=== PATIENT | female | born 1990 | race Caucasian/White ===

== ENCOUNTER 2017-10-03 16:41 | Emergency (ER) | payer OTHER ==
[~2017-10-03] VITALS: Ht 160 cm; Wt 99.8 kg
[~2017-10-03 16:41] MED LIST: (None)100 MG/ML IM; BISACODYL PO; HYDACE5 PO; HYDR1TAB94 PO; IBUP800 PO; METO10 PO; MULVITA; MULVITMINE PO; NAPR500 PO; SERT50 PO
== END 2017-10-03 19:24 | disposition home or self-care (01) ==
LOC: ER 16:41
DX: F32.9 Major depressive disorder, single episode, unspecified (principal); Z88.5 Allergy status to narcotic agent; Z79.899 Other long term (current) drug therapy; F17.210 Nicotine dependence, cigarettes, uncomplicated
CPT/HCPCS: 99284; Q3014

== ENCOUNTER 2018-05-19 09:41 | Emergency (ER) | payer OTHER ==
[~2018-05-19] VITALS: Ht 160 cm; Wt 90.7 kg
== END 2018-05-19 11:02 | disposition home or self-care (01) ==
LOC: ER 09:41
DX: R21 Rash and other nonspecific skin eruption (principal); Z88.5 Allergy status to narcotic agent; Z79.899 Other long term (current) drug therapy; K21.9 Gastro-esophageal reflux disease without esophagitis; F17.210 Nicotine dependence, cigarettes, uncomplicated
CPT/HCPCS: 99282

== ENCOUNTER 2018-08-22 14:14 | Emergency (ER) | payer MEDICAID ==
[~2018-08-22] VITALS: Ht 160 cm; Wt 86.2 kg
[2018-08-22 15:12] LABS: BASOPHILS ABSOLUTE AUTO 0.03 K/mm3 (0.00-0.23); BASOPHILS PERCENT AUTO 0 % (0-2); EOSINOPHILS ABSOLUTE AUTO 0.06 K/mm3 (0.00-0.68); EOSINOPHILS PERCENT AUTO 1 % (0-6); Hematocrit 46.5 % (33.0-51.0); IMMATURE GRAN ABSOLUTE AUTO 0.03 K/mm3 (0.00-0.10); IMMATURE GRAN PERCENT AUTO 0 % (0-1); LYMPHOCYTES ABSOLUTE AUTO 1.42 K/mm3 (0.84-5.20); LYMPHOCYTES PERCENT AUTO 19 % (21-46); MONOCYTES ABSOLUTE AUTO 0.17 K/mm3 (0.16-1.47); MONOCYTES PERCENT AUTO 2 % (4-13); Mean Corpuscular HGB 28.4 pg (26.0-34.0); Mean Corpuscular HGB Conc 32.3 g/dL (31.5-36.5); Mean Corpuscular Volume 88 fL (80-100); Mean Platelet Volume 12.3 fL (9.1-12.4); NEUTROPHILS PERCENT AUTO 77 % (41-73); Platelet Count 215 K/mm3 (150-400); RDW Coefficient Variation 12.9 % (11.7-14.2); RDW Standard Deviation 41.9 fL (35.1-46.3); Red Blood Cell Count 5.28 M/mm3 (3.80-5.20); White Blood Cell Count 7.51 K/mm3 (4.00-11.30)
[2018-08-22 15:46] LABS: Alanine Aminotransfer (ALT/SGP 24 U/L (12-78); Alk Phos 77 U/L (50-136); Anion Gap 9 mmol/L (6-16); Aspartate Aminotrans (AST/SGOT 19 U/L (12-37); Bilirubin, Total 0.5 mg/dL (0.1-1.0); Blood Urea Nitrogen 9 mg/dL (8-24); Bun/Creatinine Ratio 14.4 (12.0-20.0); CO2, Blood 22 mmol/L (21-32); Calcium, Blood 9.3 mg/dL (8.5-10.1); Chloride, Blood 109 mmol/L (98-108); Creatinine, Blood 0.63 mg/dL (0.40-1.00); Glomerular Filtration Rate >60 (60-); Glucose, Blood 98 mg/dL (70-99); Potassium, Blood 3.9 mmol/L (3.5-5.5); Sodium, Blood 140 mmol/L (136-145)
[2018-08-22 18:18] LABS: Source, Urine Clean Catch
[2018-08-22] MEDS ORDERED: QUET25 PO (19:10)
[2018-08-22] MEDS ORDERED: Atarax10 MG (19:10)
[2018-08-22 19:33] LABS: Appearance, Urine Hazy (Clear); Bilirubin, Urine Neg (Neg); Blood, Urine 1+ (Neg); Color, Urine Yellow (P-Yellow); Glucose Qualitative, Urine Neg (Neg); Ketones, Urine 4+ (Neg); Leukocyte Esterase, Urine Neg (Neg); Nitrite, Urine Neg (Neg); Protein, Urine 1+ (Neg); Urobilinogen, Urine NORM (Normal)
[2018-08-22 19:53] LABS: Bacteria Many /hpf; Red Blood Cells, Urine 0-2 /hpf (0-2); Squamous Epithelial Cells Many /hpf (Few)
[2018-08-22] MEDS ORDERED: ONDA4ODT MM (20:18)
== END 2018-08-22 21:02 | disposition home or self-care (01) ==
LOC: ER 14:14
PROVIDERS: Physician Assistant
DX: J98.01 Acute bronchospasm (principal); E86.0 Dehydration; F31.9 Bipolar disorder, unspecified; F17.200 Nicotine dependence, unspecified, uncomplicated; Z88.5 Allergy status to narcotic agent; Z79.899 Other long term (current) drug therapy
CPT/HCPCS: 36415; 71046; 80053; 81001; 81025; 85025; 87086; 93005; 93010; 94640; 96361; 96374; 96375; 99284-25; A9270-GY; J2405; J2550; J7030

== ENCOUNTER → 2019-03-06 | Outpatient (CLI) | payer OTHER ==
[~2019-03-06] MED LIST changes: +Atarax10 MG; +ONDA4ODT MM; +QUET25 PO
[2019-03-08 01:06] LABS: CHLAMYDIA TRACHOMATIS, NAA Negative (Negative); NEISSERIA GONORRHOEAE, NAA Negative (Negative)
== END ==
LOC: LAB SHORT 11:06 → LAB 11:06 → LAB EV 11:06
PROVIDERS: Registered Nurse Community Health
DX: Z34.80 Encounter for supervision of other normal pregnancy, unspecified trimester (principal)
CPT/HCPCS: 87491; 87591

== ENCOUNTER → 2023-06-09 | Outpatient (CLI) | payer OTHER ==
[2023-06-09 11:59] LABS: BASOPHILS ABSOLUTE AUTO 0.05 K/mm3 (0.00-0.23); BASOPHILS PERCENT AUTO 1 % (0-2); EOSINOPHILS ABSOLUTE AUTO 0.16 K/mm3 (0.00-0.68); EOSINOPHILS PERCENT AUTO 2 % (0-6); Hematocrit 42.5 % (33.0-51.0); Hemoglobin 14.4 g/dL (11.5-16.0); IMMATURE GRAN ABSOLUTE AUTO 0.02 K/mm3 (0.00-0.10); IMMATURE GRAN PERCENT AUTO 0 % (0-1); LYMPHOCYTES ABSOLUTE AUTO 3.13 K/mm3 (0.84-5.20); LYMPHOCYTES PERCENT AUTO 32 % (21-46); MONOCYTES ABSOLUTE AUTO 0.54 K/mm3 (0.16-1.47); MONOCYTES PERCENT AUTO 5 % (4-13); Mean Corpuscular HGB 30.3 pg (26.0-34.0); Mean Corpuscular HGB Conc 33.9 g/dL (31.5-36.5); Mean Corpuscular Volume 89 fL (80-100); Mean Platelet Volume 12.6 fL (9.1-12.4); NEUTROPHILS ABSOLUTE AUTO 6.04 K/mm3 (1.96-9.15); NEUTROPHILS PERCENT AUTO 61 % (41-73); Platelet Count 225 K/mm3 (150-400); RDW Standard Deviation 42.4 fL (35.1-46.3); Red Blood Cell Count 4.76 M/mm3 (3.80-5.20); White Blood Cell Count 9.94 K/mm3 (4.00-11.30)
[2023-06-09 12:08] LABS: Albumin, Blood 4.1 g/dL (3.4-5.0); Albumin/Globulin Ratio 1.1 (0.8-1.8); Bilirubin, Total 0.6 mg/dL (0.1-1.0); Bun/Creatinine Ratio 9.6 (12.0-20.0); Calcium, Blood 9.6 mg/dL (8.5-10.1); Creatinine, Blood 0.94 mg/dL (0.40-1.00); Globulin, Blood 3.9 g/dL (2.2-4.0); Potassium, Blood 3.8 mmol/L (3.5-5.5)
== END | disposition home or self-care (01) ==
LOC: LAB 11:50 → LAB SHORT 11:50
PROVIDERS: Emergency Medicine
DX: R42 Dizziness and giddiness (principal)
CPT/HCPCS: 80053; 83690; 83880; 84484; 85025; 85379

== ENCOUNTER → 2024-04-29 | Outpatient (CLI) | payer OTHER ==
[2024-05-04 08:06] LABS: 3-OH-COTININE, URN, QUANT <50 ng/mL; ANABASINE, URN, QUANT <5 ng/mL; COTININE, URN, QUANT <15 ng/mL; NICOTINE, URN, QUANT <15 ng/mL
== END ==
LOC: LAB SHORT 13:45 → LAB 13:45
PROVIDERS: Obstetrics & Gynecology
DX: Z87.891 Personal history of nicotine dependence (principal)
CPT/HCPCS: G0480

== ENCOUNTER → 2024-06-18 | Outpatient (CLI) | payer OTHER ==
[~2024-06-18] MED LIST changes: -Atarax10 MG; +BUSP10 PO; +HYDHCL25 PO; +LATUDA80 M1 PO; +LEVSOD75 PO; +LITH300C PO; +LITHIUM CARBON PO
[2024-06-24 18:13] LABS: HPV HIGH RISK BY TMA Not Detected; HPV SOURCE Cervical
== END ==
LOC: LAB 09:19 → LAB SHORT 09:19
PROVIDERS: Obstetrics & Gynecology
DX: Z12.4 Encounter for screening for malignant neoplasm of cervix (principal)
CPT/HCPCS: 87624; G0123

== ENCOUNTER 2024-07-14 11:39 | Day surgery (SDC) | payer OTHER ==
[~2024-07-14] VITALS: Ht 160 cm; Wt 94.9 kg
[2024-07-14] VITALS (16 sets, daily range): BP systolic 98–118; BP diastolic 55–82
[~2024-07-14 11:39] MED LIST changes: +Bupivacaine 0.5% HCl 5 MG/ML 30MLVIAL ONE; +CeFAZolin Sodium 2,000 MG in NS 100 ML IV SCH; +Dexamethasone Sod Phos 10 MG/ML 1ML VIAL ONE; +Lactated Ringer's 1,000 ML IV SCH; +Metoclopramide HCl 5MG / ML 2ML Vial ONE; +Ondansetron HCl 2 MG / ML 2ML Vial ONE; +Rocuronium Bromide 10 MG/ML 5ML Injection IV ONE; +Sugammadex Sodium 200 MG/2ML SDV (100 MG/ML) ONE
[2024-07-14] MEDS ORDERED: Bupivacaine 0.5% W/EPI 1:200000 SDV 30 ML Vial ONE (11:44)
[2024-07-14] MEDS ORDERED: propofoL 200 ML IV ONE (11:50)
[2024-07-14] MEDS ORDERED: HYDROmorphone HCl/Pf 1MG SYR ONE ×2 (11:54→14:43)
[2024-07-14] MEDS ORDERED: Acetaminophen 500 MG Tab PO SCH ×2 (12:00→18:00)
[2024-07-14] MEDS ORDERED: HyDROXyzine HCl 25 MG Tab PO PRN (12:25)
[2024-07-14] MEDS ORDERED: Phenylephrine HCl 100 MCG/ML-NS 10MLSYR (1MG/10ML) ONE (12:46)
--- NOTE | 2024-07-14 12:55 | NUR ---
07/14/24 1255 Natan Ashraf CARLISLE 14FR CATHETER STERILY PLACED BY DR. FLORES, WILL BE REMOVED PRIOR TO LEAVING THE OR. NATAN MARRERO RN 07-14-24 @6031
[2024-07-14] MEDS ORDERED: FentaNYL Citrate 50 MCG/ML 2 ML Injection ONE ×2 (13:04→13:55)
[2024-07-14] MEDS ORDERED: Ketorolac Tromethamine 30mg Vial ONE (13:37)
[2024-07-14] MEDS ORDERED: DiphenhydrAMINE HCL 25 MG Cap PO PRN (14:05)
[2024-07-14] MEDS ORDERED: FLU VACC TS2024-25(6MOS UP)/PF 45 MCG/0.5 ML SYRINGE IM SCH (14:10)
[2024-07-14] MEDS ORDERED: Lactated Ringer's 1,000 ML IV SCH (14:10)
[2024-07-14] MEDS ORDERED: Ondansetron HCl 2 MG / ML 2ML Vial IV PRN (14:10)
[2024-07-14] MEDS ORDERED: HYDROmorphone HCl/Pf 1MG SYR IV PRN (14:10)
[2024-07-14] MEDS ORDERED: Metoclopramide HCl 5MG / ML 2ML Vial IV PRN (14:10)
[2024-07-14] MEDS ORDERED: Ondansetron 4 MG TAB PO PRN (14:10)
[2024-07-14] MEDS ORDERED: Simethicone 80 MG Chew PO PRN (14:15)
[2024-07-14] MEDS ORDERED: Metoclopramide HCl 10 MG Tab PO PRN (14:15)
[2024-07-14] MEDS ORDERED: OxyCODONE HCL 5 MG TAB PO PRN (14:15)
[2024-07-14] MEDS ORDERED: Albuterol 2.5 MG/3 ML VIAL ONE (14:18)
[2024-07-14] MEDS ORDERED: Ketorolac Tromethamine 30mg Vial IV PRN (14:20)
--- NOTE | 2024-07-14 15:22 | NUR ---
TRANSFER TO UNIT AFTER RECEIVING REPORT FROM NUCLEAR UNIT OPERATOR, PATIENT TRANSFERRED TO UNIT AT APPROX 1515. PATIENT ALERT - TRANSFERRED FROM [facility] TO BED VIA SLIDER SHEET. S/P LAP TOTAL HYSTER. SBP 110s. MAP >65. BRADYCARDIC - RATE 50s-60s. ASYMPTOMATIC. ON 2L VIA NC, SATs >90%. RR SHALLOW, EVEN, UNLABORED. X4 LAP SITES WITH WOUND GLUE C/D/I. DENIES PAIN AT THIS TIME. DENIES N/V - WATER AND SMALL SNACKS WITHIN REACH. IVF INFUSING TO GRAVITY. CALL LIGHT IN REACH.
[2024-07-14] MEDS ORDERED: ACET500 PO (17:23)
[2024-07-14] MEDS ORDERED: SIME80CH PO (17:24)
[2024-07-14] MEDS ORDERED: IBUP400 PO (17:24)
--- NOTE | 2024-07-14 18:10 | NUR ---
DISCHARGE NOTE NO ACUTE CHANGES SINCE ARRIVAL TO UNIT NOTE. S/P LAP ABD HYSTER. X4 LAP SITES C/D/I. ON ROOM AIR, SATs >90%. PAIN MANAGED WITH PRESCRIBED MEDICATION AND HEATING DEVICE. SCANT VAGINAL BLEEDING. VOIDING. AMBULATING. PATIENT EAGER TO DC HOME. DC HOME ORDERED BY . VERBAL AND WRITTEN EDUCATION PROVIDED BY SECTIONIZERMARGO SHUKLA. IV REMOVED. PATIENT TRANSFERRED TO PERSONAL VEHICLE VIA AT APPROX 1810. PERSONAL BELONGINGS WITH PATIENT.
[2024-07-14] MEDS ORDERED: BusPIRone HCl 10 MG Tab PO SCH (21:00)
[2024-07-14] MEDS ORDERED: Lithium Carbonate 300 MG Cap PO SCH ×2 (21:00)
[2024-07-15] MEDS ORDERED: Levothyroxine Sodium 0.075 MG Tab PO SCH (06:00)
[2024-07-15] MEDS ORDERED: Misc. Tablet PO SCH (09:00)
== END 2024-07-14 18:13 | disposition home or self-care (01) ==
LOC: ORSCMMR 11:39 → ORD 12:30 → ORSCMMR 12:30 → SURS 15:00 → ORSCMMR 18:13
PROVIDERS: Obstetrics & Gynecology
PROC: 0UT9FZZ Resection of Uterus, Via Natural or Artificial Opening With Percutaneous Endoscopic Assistance (ICD-10-PCS; principal; 2024-07-14 12:30)
DX: N92.0 Excessive and frequent menstruation with regular cycle (principal); N80.03 Adenomyosis of the uterus; N94.6 Dysmenorrhea, unspecified; N73.6 Female pelvic peritoneal adhesions (postinfective); Z87.891 Personal history of nicotine dependence; J45.909 Unspecified asthma, uncomplicated; E03.9 Hypothyroidism, unspecified; E66.9 Obesity, unspecified; Z68.37 Body mass index [BMI] 37.0-37.9, adult; F31.9 Bipolar disorder, unspecified; F43.10 Post-traumatic stress disorder, unspecified; Z79.899 Other long term (current) drug therapy
CPT/HCPCS: 36415; 86850; 86900; 86901; 88307; A9270; J0690; J1100; J1171; J1885; J2371; J2405; J2704; J2765; J3010; J7120